=== PATIENT | male | born 1995 | race Caucasian/White ===

== ENCOUNTER 2019-02-02 09:17 | Emergency (ER) | payer OTHER ==
--- NOTE | 2019-02-02 10:19 | UC ---
HPI BURN - HPI Summary HPI Summary: 23-year-old male presents with complaints of a burn to the index and middle fingers of his left hand. States he accidentally burned his hand on some boiling water at work 2 days ago. He immediately applied cold therapy and has been applying an anti-burn gel to the affected area. Complains of mild pain with an intact blister to both the index and middle fingers (see diagram). Denies fever, chills, edema, numbness, tingling, or reduced range of motion. - History of Current Complaint Chief Complaint: UCBurn Stated Complaint: BURN TO HAND Time Seen by Provider: 02/02/19 10:06 Hx Obtained From: Patient Pain Intensity: 2 - Allergy/Home Medications Allergies/Adverse Reactions: Allergies Allergy/AdvReac Type Severity Reaction Status Date / Time amoxicillin Allergy Rash Verified 02/02/19 09:36 carbamazepine Allergy Rash Verified 02/02/19 09:36 erythromycin base Allergy Rash Verified 02/02/19 09:36 PMH/Surg Hx/FS Hx/Imm Hx Previously Healthy: Yes Cardiovascular History: Hypertension Respiratory History: Asthma Psychological History: Anxiety - Surgical History Surgical History: Yes Surgery Procedure, Year, and Place: EAR TUBES A CHILD, ARTHROSCOPIC TEA RIGHT SURGERY - Family History Known Family History: Positive: Non-Contributory - Social History Occupation: Employed Full-time Lives: With Family Alcohol Use: Occasionally Substance Use Type: None Smoking Status (MU): Light Every Day Tobacco Smoker Review of Systems All Other Systems Reviewed And Are Negative: Yes Constitutional: Negative: Fever, Chills Skin: Positive: Other - See HPI Respiratory: Positive: Negative Cardiovascular: Positive: Negative Gastrointestinal: Positive: Negative Genitourinary: Positive: Negative Motor: Negative: Weakness Neurovascular: Negative: Negative Musculoskeletal: Negative: Arthralgia, Decreased ROM Neurological: Positive: Negative Is Patient Immunocompromised?: No Physical Exam - Summary Physical Exam Summary: GENERAL APPEARANCE: Well developed, well nourished, alert and cooperative, and appears to be in no acute distress. CARDIAC: Normal S1 and S2. No S3, S4 or murmurs. Rhythm is regular. There is no peripheral edema, cyanosis or pallor. Extremities are warm and well perfused. Capillary refill is less than 2 seconds. Peripheral pulses intact. LUNGS: Clear to auscultation without rales, rhonchi, wheezing or diminished breath sounds. ABDOMEN: Positive bowel sounds. Soft, nondistended, nontender. No guarding or rebound. No masses or hepatosplenomegally. MUSKULOSKELETAL: ROM intact to all extremities. No joint erythema or tenderness. Normal muscular development. Normal gait. SKIN: Erythema to the dorsal aspect of the left index and middle fingers with a 1 cm intact blister to the proximal aspect of the index finger and 2 cm intact blister to the distal middle finger. Triage Information Reviewed: Yes Vital Signs: Initial Vital Signs Temp 98 F 02/02/19 09:32 Pulse 70 02/02/19 09:32 Resp 17 02/02/19 09:32 BP 152/102 02/02/19 09:32 Pulse Ox 100 02/02/19 09:32 Vital Signs Reviewed: Yes Images Hands: 1 - 1 cm intact blister 2 - 2 cm intact blister Burn Calculation - [place] Formula for Fluid Resuscitation Weight: 113.398 kg 24 -Hour Fluid Replacement: 0.0 Course/Dx Burn - Course Course Of Treatment: 23-year-old male presents with complaints of a burn to the index and middle fingers of his left hand. States he accidentally burned his hand on some boiling water at work 2 days ago. He immediately applied cold therapy and has been applying an anti-burn gel to the affected area. Complains of mild pain with an intact blister to both the index and middle fingers. Denies fever, chills, edema, numbness, tingling, or reduced range of motion. Tetanus status unknown. Afebrile. Patient is noted to have an elevated blood pressure but otherwise vital signs stable. Exam reveals a young adult male in no acute distress with erythema to the dorsal aspect of his left index and middle fingers with a 1 cm intact blister to the proximal aspect of the index finger and a 2 cm intact blister to the distal aspect of the middle finger (see diagram) and otherwise unremarkable exam. Patient's tetanus was updated. A dressing with antibiotic ointment, nonstick gauze, and secured with a roller gauze was applied by the RN. Patient is to follow-up with his primary care provider as needed. Wound care was reviewed with the patient as well as anticipatory guidance and warning symptoms. Verbalizes understanding and agrees with plan of care. - Differential Dx - Burn Differential Diagnoses: Direct Contact Thermal Burn, Other - Infection - Diagnoses Provider Diagnosis: 2nd degree burn of multiple fingers of left hand not including thumb, Elevated blood pressure reading Discharge - Sign-Out/Discharge Documenting (check all that apply): Patient Departure All imaging exams completed and their final reports reviewed: No Studies - Discharge Plan Condition: Stable Disposition: HOME Patient Education Materials: Second Degree Burn (ED) Referrals: Manny Shaw MD [Primary Care Provider] - (Follow up if needed for burn. Follow up within 2 weeks for recheck of blood pressure.) Additional Instructions: You have a first and second degree burn of the left index and middle fingers. Leave the blisters intact as long as possible to reduce the risk of infection. Once they do open, be sure to keep the wound covered. Apply an antibiotic ointment such as Bacitracin at lease twice a day to the affected area. Cover with a non-stick gauze (Telfa) and secure with a roller gauze. This should be changed twice a day or anytime the dressing becomes wet or soiled. Take acetaminophen (Tylenol) or ibuprofen (Advil, Motrin) according to directions as needed for pain. Your tetanus was updated today. Be sure to notify your primary care provider so that they may update their records. Follow up with your primary care provider as needed for the burn. You blood pressure was very elevated today so you should follow up with them within the next 2 weeks to have this rechecked. Watch for signs of infection including fever greater than 100.5 F, increased pain despite taking acetaminophen or ibuprofen, redness that spreads, increased swelling, or any worsening of symptoms. Seek immediate medical attention should any of these occur. - Billing Disposition and Condition Condition: STABLE Disposition: Home
[2019-02-02 10:20] VITALS: BP 158/120
[2019-02-02] MEDS ORDERED: Tetan/Diph/Pertus SYR(Tdap)* 0.5 ML SYR(BOOSTRIX) use SYR IM ONE (10:24)
== END 2019-02-02 10:30 | disposition home or self-care (01) ==
LOC: UCEAST 09:17
DX: T23.232A Burn of second degree of multiple left fingers (nail), not including thumb, initial encounter (principal); Y27.2XXA Contact with hot fluids, undetermined intent, initial encounter; Y92.9 Unspecified place or not applicable; Z23 Encounter for immunization; I10 Essential (primary) hypertension; Z88.1 Allergy status to other antibiotic agents; Z88.0 Allergy status to penicillin; Z88.8 Allergy status to other drugs, medicaments and biological substances; F17.200 Nicotine dependence, unspecified, uncomplicated
CPT/HCPCS: 16020; 90471; 90715; 99211; 99212; G0463